=== PATIENT | female | born 1950 | race Caucasian/White ===

== ENCOUNTER 2024-06-30 14:24 | Emergency (ER) | payer OTHER ==
[2024-06-30 15:15] VITALS: BMI 43.2
[2024-06-30 15:29] VITALS: BP 124/65; PULSE 81; RESP 18; TEMP 98.2
[2024-06-30] MEDS ORDERED: diphenhydrAMINE HCL 25 MG CAPSULE (FP) PO ONE (15:47)
[2024-06-30] MEDS ORDERED: ALBUTEROL SO4 2.5/IPRATROPIUM 0.5 INH SOL 3 ML VIAL.NEB. NEB ONE (15:47)
[2024-06-30] MEDS ORDERED: predniSONE 20 MG TABLET (UD) ONE (15:47)
[2024-06-30] MEDS: diphenhydrAMINE HCL 25 MG CAPSULE (FP) PO ONE (15:53)
[2024-06-30] MEDS: ALBUTEROL SO4 2.5/IPRATROPIUM 0.5 INH SOL 3 ML VIAL.NEB. NEB ONE (15:53)
[2024-06-30] MEDS: predniSONE 20 MG TABLET (UD) PO ONE ×2 (15:53)
== END 2024-06-30 16:53 | disposition home or self-care (01) ==
LOC: FER 14:24
DX: K13.0 Diseases of lips (principal)
CPT/HCPCS: 99283-25